=== PATIENT | male | born 1965 | race Caucasian/White ===

== ENCOUNTER 2021-01-09 11:08 | Inpatient (IN) | payer BC ==
[~2021-01-09] VITALS: Ht 175.3 cm; Wt 103.4 kg
[2021-01-09 13:26] LABS: HEMOGLOBIN 16.4 gm/dl (14.0-17.5); RED BLOOD COUNT 5.31 M/UL (4.20-5.50); WHITE BLOOD COUNT 13.8 K/UL (4.5-11.0)
[2021-01-09 13:56] LABS: BUN/CREATININE RATIO 17 (0-10)
[2021-01-09] MEDS ORDERED: KEFLEX CAP 250250 MG PO (23:46)
[2021-01-09] MEDS ORDERED: COZAAR50 MG PO (23:47)
[2021-01-09] MEDS ORDERED: DOXYCYCLINE MO100 MG PO (23:48)
[2021-01-09] MEDS ORDERED: GLUCOPHAGE XR500 M1 PO (23:49)
[2021-01-09] MEDS ORDERED: JARDIANCE25 MG PO (23:49)
[2021-01-10 06:20] LABS: RED BLOOD COUNT 4.81 M/UL (4.20-5.50)
[2021-01-10 06:37] LABS: HEMOGLOBIN 14.2 gm/dl (14.0-17.5); WHITE BLOOD COUNT 10.3 K/UL (4.5-11.0)
[2021-01-10 07:36] LABS: BUN/CREATININE RATIO 16 (0-10)
[2021-01-11 06:05] LABS: HEMOGLOBIN 14.1 gm/dl (14.0-17.5); RED BLOOD COUNT 4.75 M/UL (4.20-5.50); WHITE BLOOD COUNT 9.2 K/UL (4.5-11.0)
[2021-01-11 07:00] LABS: BUN/CREATININE RATIO 18 (0-10)
[2021-01-12 08:15] LABS: HEMOGLOBIN 14.3 gm/dl (14.0-17.5); RED BLOOD COUNT 4.68 M/UL (4.20-5.50)
[2021-01-12 08:37] LABS: BUN/CREATININE RATIO 21 (0-10)
[2021-01-12] MEDS ORDERED: NOVOLIN N100 UNIT/1 SQ (13:07)
[2021-01-13 05:30] LABS: HEMOGLOBIN 14.2 gm/dl (14.0-17.5); RED BLOOD COUNT 4.66 M/UL (4.20-5.50); WHITE BLOOD COUNT 9.1 K/UL (4.5-11.0)
[2021-01-13 05:52] LABS: BUN/CREATININE RATIO 14 (0-10)
[2021-01-14 07:15] LABS: HEMOGLOBIN 14.1 gm/dl (14.0-17.5); RED BLOOD COUNT 4.8 M/UL (4.20-5.50)
[2021-01-14 07:36] LABS: WHITE BLOOD COUNT 6.7 K/UL (4.5-11.0)
[2021-01-14 08:08] LABS: BUN/CREATININE RATIO 18 (0-10)
[2021-01-15 07:03] LABS: HEMOGLOBIN 15.2 gm/dl (14.0-17.5); RED BLOOD COUNT 5.05 M/UL (4.20-5.50); WHITE BLOOD COUNT 7.1 K/UL (4.5-11.0)
[2021-01-15 07:29] LABS: BUN/CREATININE RATIO 18 (0-10)
[2021-01-15] MEDS ORDERED: GLUCOPHAGE 850850 MG PO (13:29)
[2021-01-15] MEDS ORDERED: LEVEMIR FL100 UNIT/1 SQ (13:29)
[2021-01-15] MEDS ORDERED: HYDROCODON-ACE1 EAC4 PO (13:29)
[2021-01-15] MEDS ORDERED: NOVOLIN R100 UNIT/2 SQ (13:29)
[2021-01-15] MEDS ORDERED: JARDIANCE10 MG PO (13:29)
[2021-01-15] MEDS ORDERED: BACTRIM DS TAB1 EACH PO (13:32)
[2021-01-15] MEDS ORDERED: JARDIANCE25 MG PO (13:51)
[2021-01-15] MEDS ORDERED: MUPIROCIN30 GM TP (13:51)
[2021-01-15] MEDS ORDERED: JANUVIA25 MG PO (13:52)
== END 2021-01-15 14:51 | disposition home or self-care (01) | DRG 603 ==
LOC: ER1 11:08 → MED SURG 4 16:26 → CDU 16:26 → MED SURG 4 18:45
PROVIDERS: Internal Medicine; Physician Assistant; Surgery; ADMIT Internal Medicine
PROC: 0J9C0ZZ Drainage of Pelvic Region Subcutaneous Tissue and Fascia, Open Approach (ICD-10-PCS; principal; 2021-01-13 12:45)
DX: L02.214 Cutaneous abscess of groin (principal); E87.1 Hypo-osmolality and hyponatremia; Z20.822 Contact with and (suspected) exposure to COVID-19; E11.9 Type 2 diabetes mellitus without complications; I10 Essential (primary) hypertension; L03.314 Cellulitis of groin; B95.7 Other staphylococcus as the cause of diseases classified elsewhere; E78.5 Hyperlipidemia, unspecified; Z79.4 Long term (current) use of insulin; Z88.7 Allergy status to serum and vaccine; Z83.3 Family history of diabetes mellitus; Z80.0 Family history of malignant neoplasm of digestive organs
CPT/HCPCS: 36415; 72193; 76882; 80053; 80202; 81001; 82962; 83036; 83605; 85025; 85652; 86140; 87040; 87070; 87077; 87186; 87205; 96374; 96375; 99284; J1650; J2185; J2250; J2543; J3010; J3370; J7070; J7120; Q9967; U0002